=== PATIENT | male | born 1950 | race Caucasian/White ===

== ENCOUNTER → 2016-09-17 | Outpatient (CLI) | payer MEDICARE, OTHER ==
[~2016-09-17] MED LIST: ADVAIR INH; ASPIRIN EC81 MG PO; AUGMENTIN875 MG PO; CENTRUM SILVER1 EAC1 PO; COREG6.25 MG PO; FEOSOL325 MG PO; GLUCOPHAGE1000 MG PO; IMDUR30 MG PO; JANUVIA100 MG PO; LASIX40 MG PO; LIPITOR40 MG PO; NITROSTAT0.4 MG SL; NORCO 5-325 TA1 EACH PO; PANTOPRAZOLE SO40 MG PO; PLAVIX75 MG PO; PROAIR HFA8.5 GM INH; SYMBICORT 160/41 KIT INH; TRAMADOL HCL50 MG PO; TYLENOL325 MG PO; VASOTEC5 MG PO
== END | disposition disaster alternative care site (69) ==
LOC: GRAD 09:34
DX: C22.8 Malignant neoplasm of liver, primary, unspecified as to type (principal); R09.1 Pleurisy; J94.8 Other specified pleural conditions; R74.8 Abnormal levels of other serum enzymes; K76.0 Fatty (change of) liver, not elsewhere classified
CPT/HCPCS: Q9967

== ENCOUNTER → 2016-12-15 | Outpatient (CLI) | payer MEDICARE, OTHER | END | disposition disaster alternative care site (69) | LOC: GAMB 20:41 | DX: I95.9 Hypotension, unspecified (principal); J00 Acute nasopharyngitis [common cold]; I10 Essential (primary) hypertension; E86.1 Hypovolemia; R53.1 Weakness; R61 Generalized hyperhidrosis; Z79.82 Long term (current) use of aspirin; Z79.84 Long term (current) use of oral hypoglycemic drugs; Z79.899 Other long term (current) drug therapy; Z85.05 Personal history of malignant neoplasm of liver | CPT/HCPCS: A0422; A0425; A0427; J7030 ==